=== PATIENT | female | born 1960 | race Caucasian/White ===

== ENCOUNTER 2017-12-13 10:24 | Inpatient (IN) | payer BC, OTHER ==
[2017-12-13] VITALS (13 sets, daily range): BP systolic 98–144; BP diastolic 54–84
[~2017-12-13] VITALS: Ht 154.9 cm; Wt 63.0 kg
--- NOTE | ~2017-12-13 | EKG ---
[address] [address] ELECTROCARDIOGRAM REPORT Name: HILLARY LANGFORD Room #: 209- ADM IN ..#: [id number] Admission: 12/13/17 Attend Phys: Caleb Cabrera MD Discharge: Date of : 60 Report #: [id number] THIS REPORT FOR: //name// [facility] Test Date: 2017-12-15 Test Time: 08:43:22 Pat Name: HILLARY LANGFORD Department: Room: 209 P Gender: F Lead Programmer: dagoberto : 1960 Requested By: Param Ribeiro Order Number: [id number] MD: Param Ribeiro Measurements Intervals [place] Rate: 85 P: 76 ND: 159 QRS: 49 QRSD: 75 T: 54 QT: 382 QTc: 455 Interpretive Statements Sinus rhythm Baseline wander in lead(s) V2,V3 Compared to ECG 12/13/2017 10:58:39 Sinus tachycardia no longer present Myocardial infarct finding no longer present Electronically Signed On 12-15-2017 12:23:00 CDT by Param Ribeiro [email or web address] <ELECTRONICALLY SIGNED> By: Param Ribeiro MD 12/15/17 1223 [id number] [id number] Param Ribeiro MD /EPI
--- NOTE | ~2017-12-13 | 2DMMODE ---
[facility] [address] [facility] [place] [address] 2 D/M-MODE ECHOCARDIOGRAM Name: LANGFORDHILLARY Room #: 244-P [facility]#: [id number] Admission: 12/13/17 Attend Phys: Caleb Cabrera MD Discharge: Date of : 60 Date of Service: 12/14/17 1147 Report #: [id number] THIS REPORT FOR: //name// APPROVED REPORT Study performed: 12/14/2017 11:02:59 EXAM: Comprehensive 2D, Doppler, and color-flow Echocardiogram Patient Location: ICU Room #: 244 Status: on-call BSA: 1.60 HR: 73 bpm BP: 144/71 mmHg Other Information Study Quality: Adequate Indications Diabetes Elevated Troponin Chest Pain Hypertension/HDD 2D Dimensions RVDd: 26.86 mm LVEF(%): 52.19 (>50%) IVSd: 9.64 (7-11mm) LVOT Diam: 21.35 (18-24mm) LVDd: 40.04 mm PWd: 9.13 (7-11mm) Ascending Ao: 26.53 (22-36mm) LVDs: 29.48 (25-40mm) Aortic Root: 25.82 mm IVC: 19.00 mm Lieberman's LVEF: 52.19 % Volumes Left Atrial Volume (Systole) Single Plane 4CH: 28.08 mL Single Plane 2CH: 33.53 mL LA ESV Index: 22.00 mL/m2 Aortic Valve AoV Peak Rich.: 0.97 m/s AO Peak Gr.: 3.75 mmHg LVOT Max P.15 mmHg LVOT Max V: 0.73 m/s NANCY Vmax: 2.71 cm2 Mitral Valve [facility] [employer] [address] [place] [address] 2 D/M-MODE ECHOCARDIOGRAM Name: HILLARY LANGFORD Room #: 244-P [facility]#: [id number] Admission: 12/13/17 Attend Phys: Caleb Cabrera MD Discharge: Date of : 60 Date of Service: 12/14/17 1147 Report #: [id number] E/A Ratio: 0.8 MV Decel. Time: 210.80 ms MV E Max Rich.: 0.65 m/s MV A Rich.: 0.79 m/s MV PHT: 61.13 ms IVRT: 110.73 ms Pulmonary Valve PV Peak Rich.: 0.83 m/s PV Peak Gr.: 2.83 mmHg Pulmonary Vein P Vein S: 0.56 m/s P Vein A: 0.26 m/s P Vein D: 0.36 m/s P Vein A Dur.: 106.1 msec P Vein S/D Ratio: 1.56 Tricuspid Valve TR Peak Rich.: 2.32 m/s TR Peak Gr.: 21.53 mmHg PA Pressure: 27.00 mmHg Left Ventricle The left ventricle is normal size. There is normal left ventricular wall thickness. The left ventricular systolic function is normal. The left ventricular ejection fraction is within the normal range. LVEF is 55-60%. Grade I - abnormal relaxation pattern. Right Ventricle The right ventricle is normal size. The right ventricular systolic function is normal. Atria The left atrium size is normal. The right atrium size is normal. Aortic Valve The aortic valve is normal in structure. Trace aortic regurgitation. There is no aortic valvular stenosis. Mitral Valve The mitral valve is normal in structure. Trace mitral regurgitation. No evidence of mitral valve stenosis. Tricuspid Valve The tricuspid valve is normal in structure. There is trace tricuspid regurgitation. Estimated PAP 27 mmHg. There is no pulmonary hypertension. [address] [address] 2 D/M-MODE ECHOCARDIOGRAM Name: HILLARY LANGFORD Dajuan Room #: 244-P [facility]#: [id number] Admission: 12/13/17 Attend Phys: Caleb Cabrera MD Discharge: Date of : 60 Date of Service: 12/14/17 1147 Report #: [id number] Pulmonic Valve The pulmonary valve is normal in structure. Trace pulmonic regurgitation. Great Vessels The aortic root is normal in size. IVC is normal in size and collapses >50% with inspiration. Pericardium There is no pericardial effusion. <Conclusion> The left ventricle is normal size. There is normal left ventricular wall thickness. The left ventricular systolic function is normal. The left ventricular ejection fraction is within the normal range. LVEF is 55-60%. The right ventricular systolic function is normal. The aortic valve is normal in structure. Trace aortic regurgitation. There is no aortic valvular stenosis. The mitral valve is normal in structure. Trace mitral regurgitation. The tricuspid valve is normal in structure. There is trace tricuspid regurgitation. Estimated PAP 27 mmHg. There is no pulmonary hypertension. The aortic root is normal in size. There is no pericardial effusion. <ELECTRONICALLY SIGNED> By: Param Ribeiro MD 12/14/17 1147 1147 1147 Param Ribeiro MD /INF
--- NOTE | ~2017-12-13 | EKG ---
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
[2017-12-13 10:41] LABS: BE(vivo) -13.6 mmol/L (-2 to +3); HCO3 12.3 mmol/L (22.0-26.0); PCO2 VENOUS 28.8 mmHg (41.0-51.0); PO2 VENOUS 49.8 mmHg (35.0-45.0)
[2017-12-13 10:44] LABS: URINE BILIRUBIN NEGATIVE (Negative); URINE BLOOD NEGATIVE (Negative); URINE CLARITY CLEAR; URINE COLOR YELLOW; URINE GLUCOSE-RANDOM* 3+ (Negative); URINE KETONES 3+ (Negative); URINE LEUKOCYTES-REFLEX NEGATIVE (Negative); URINE NITRITE-REFLEX NEGATIVE (Negative); URINE PROTEIN (DIPSTICK) NEGATIVE (Negative); URINE SPECIFIC GRAVITY 1.025 (1.005-1.035); URINE UROBILINOGEN 0.2 E.U./dl (0.2-1.0)
[2017-12-13 10:47] LABS: ABSOLUTE NEUTROPHILS 10.1 thou/uL (1.4-8.2); BASOPHILS 0.5 % (0.0-2.0); HEMATOCRIT 36.9 % (37.0-47.0); LYMPHOCYTES 7.6 % (24.0-44.0); MCH 28.9 pg (26.0-34.0); MCHC 32.5 g/dL (28.0-37.0); MCV 88.7 fL (80.0-100.0); MONOCYTES 2.1 % (1.0-8.0); PLATELET COUNT 253 thou/uL (150-400); POLYS 89.8 % (36.0-66.0); RBC 4.16 mil/uL (4.20-5.00); RDW 13.7 % (10.5-14.5); WBC 11.2 thou/uL (4.0-11.0)
[2017-12-13 10:55] LABS: CALCIUM 9.6 mg/dL (8.5-10.1); CREATININE 1.2 mg/dL (0.6-1.0)
[2017-12-13 11:00] LABS: ALBUMIN 4.2 g/dL (3.4-5.0); TOTAL BILIRUBIN 0.9 mg/dL (<0.1-1.0); TOTAL PROTEIN 7.1 g/dL (6.4-8.2); TROPONIN-I 0.1 ng/mL (<0.06)
[2017-12-13 12:56] LABS: AMP/METHAMP Negative (Negative); BARBITURATES Negative (Negative); BENZODIAZEPINES Negative (Negative); COCAINE Negative (Negative); METHADONE Negative (Negative); OPIATES Negative (Negative); PCP Negative (Negative)
[2017-12-13 16:02] LABS: CALCIUM 8.2 mg/dL (8.5-10.1); CREATININE 0.9 mg/dL (0.6-1.0); POTASSIUM 4.2 mmol/L (3.5-5.1); TROPONIN-I 0.08 ng/mL (<0.06)
[2017-12-13] MEDS ORDERED: CYMBALTA60 MG PO (18:22)
[2017-12-13] MEDS ORDERED: SYNTHROID75 MCG PO (18:23)
[2017-12-13] MEDS ORDERED: LAMICTAL100 MG PO (18:24)
[2017-12-13] MEDS ORDERED: PROTONIX40 M1 PO (18:26)
[2017-12-13] MEDS ORDERED: GABAPENTIN 100100 MG PO (18:27)
[2017-12-13] MEDS ORDERED: LISINOPRIL10 MG PO (18:28)
[2017-12-13] MEDS ORDERED: PERCOCET PO (18:29)
[2017-12-13] MEDS ORDERED: XANAX 0.5 MG0.5 MG PO (18:30)
[2017-12-13 19:17] LABS: ALBUMIN 3.5 g/dL (3.4-5.0); CALCIUM 8.5 mg/dL (8.5-10.1); CREATININE 0.9 mg/dL (0.6-1.0); PHOSPHORUS 3.9 mg/dL (2.5-4.9); POTASSIUM 4.2 mmol/L (3.5-5.1)
[2017-12-13] MEDS ORDERED: AMBIEN 5 MG TABL5 M1 PO (21:50)
[2017-12-13 23:27] LABS: ALBUMIN 3.2 g/dL (3.4-5.0); CALCIUM 8.3 mg/dL (8.5-10.1); CREATININE 0.9 mg/dL (0.6-1.0); PHOSPHORUS 3.6 mg/dL (2.5-4.9); POTASSIUM 3.6 mmol/L (3.5-5.1)
[2017-12-14] VITALS (16 sets, daily range): BP systolic 119–170; BP diastolic 64–95
[2017-12-14 04:24] LABS: HEMATOCRIT 32.6 % (37.0-47.0); HEMOGLOBIN 10.9 gm/dL (12.0-15.0); MCH 29.1 pg (26.0-34.0); MCHC 33.5 g/dL (28.0-37.0); MCV 86.7 fL (80.0-100.0); RBC 3.76 mil/uL (4.20-5.00); RDW 13.8 % (10.5-14.5); WBC 7.3 thou/uL (4.0-11.0)
[2017-12-14 04:31] LABS: ALBUMIN 3.1 g/dL (3.4-5.0); CALCIUM 8.1 mg/dL (8.5-10.1); CREATININE 0.9 mg/dL (0.6-1.0); MAGNESIUM 1.8 mg/dL (1.8-2.4); PHOSPHORUS 3.4 mg/dL (2.5-4.9); POTASSIUM 3.6 mmol/L (3.5-5.1); TROPONIN-I 0.27 ng/mL (<0.06)
[2017-12-14 10:19] LABS: ALBUMIN 3.3 g/dL (3.4-5.0); CALCIUM 8.7 mg/dL (8.5-10.1); CREATININE 0.8 mg/dL (0.6-1.0); MAGNESIUM 1.9 mg/dL (1.8-2.4); PHOSPHORUS 3.2 mg/dL (2.5-4.9); POTASSIUM 4.1 mmol/L (3.5-5.1); TROPONIN-I 0.17 ng/mL (<0.06)
[2017-12-15 03:55] LABS: ABSOLUTE NEUTROPHILS 3.9 thou/uL (1.4-8.2); BASOPHILS 0.5 % (0.0-2.0); EOSINOPHILS 1.6 % (0.0-3.0); HEMATOCRIT 35.6 % (37.0-47.0); HEMOGLOBIN 11.8 gm/dL (12.0-15.0); LYMPHOCYTES 22.8 % (24.0-44.0); MCH 28.9 pg (26.0-34.0); MCV 87.5 fL (80.0-100.0); MONOCYTES 8.8 % (1.0-8.0); PLATELET COUNT 233 thou/uL (150-400); POLYS 66.3 % (36.0-66.0); RBC 4.07 mil/uL (4.20-5.00); RDW 13.6 % (10.5-14.5); WBC 5.8 thou/uL (4.0-11.0)
[2017-12-15 03:58] LABS: CALCIUM 8.6 mg/dL (8.5-10.1); CREATININE 0.7 mg/dL (0.6-1.0); POTASSIUM 3.9 mmol/L (3.5-5.1)
[2017-12-15 04:30] VITALS: BP 139/74
[2017-12-15 07:30] VITALS: BP 179/83
[2017-12-15 10:58] VITALS: BP 179/83
== END 2017-12-15 12:25 | disposition home or self-care (01) | DRG 638 ==
LOC: ER 10:24 → EROBS 11:14 → ICU 11:14 → 2N 12-14 16:22
PROVIDERS: Hospitalist; Nurse Practitioner; Physician Assistant
DX: E10.10 Type 1 diabetes mellitus with ketoacidosis without coma (principal); N17.9 Acute kidney failure, unspecified; I10 Essential (primary) hypertension; M79.7 Fibromyalgia; E03.9 Hypothyroidism, unspecified; E86.0 Dehydration; F41.9 Anxiety disorder, unspecified; Z88.8 Allergy status to other drugs, medicaments and biological substances; Z90.49 Acquired absence of other specified parts of digestive tract; Z90.710 Acquired absence of both cervix and uterus; Z87.891 Personal history of nicotine dependence; Z79.899 Other long term (current) drug therapy; Z87.19 Personal history of other diseases of the digestive system
CPT/HCPCS: 10078; 10081